=== PATIENT | female | born 1960 | race Caucasian/White ===

== ENCOUNTER 2017-08-23 20:55 | Emergency (ER) | payer BC ==
[2017-08-23] MEDS ORDERED: Ketorolac Tromethamine 30 MG/ML VIAL ONE (21:15)
[2017-08-23 21:26] LABS: #Basophils 0.1 thou/uL (0.0-0.2); #Eosinphils 0.1 thou/uL (0.0-0.7); #Lymphocytes 1.5 thou/uL (1.20-3.40); #Monocytes 0.5 thou/uL (0.11-0.59); %Basophils 2.2 % (0.0-1.0); %Eosinophils 2.4 % (0.0-10.0); %Monocytes 8.3 % (0.0-10.0); %Neutrophils 63.2 % (42.0-75.0); Hemoglobin 13.2 g/dL (12.0-16.0); Mean Corpuscular HGB CONC 33.6 g/dL (32.0-36.0); Mean Corpuscular Volume 89.3 fl (81.0-99.0); Mean Platelet Volume 8.7 fL (7.4-10.4); Platelet Count 220 thou/uL (130-400); RBC Distribution Width 11.1 % (11.5-14.5); Red Blood Cell (RBC) Count 4.41 mill/uL (4.20-5.40); White Blood Cell (WBC) Count 6.3 thou/uL (4.8-10.8)
[2017-08-23 21:42] LABS: ALT (SGPT) 14 U/L (8-55); AST (SGOT) 18 U/L (5-34); Albumin 4.5 g/dL (3.5-5.0); Alkaline Phosphatase 69 U/L (40-150); Anion Gap 16 mmol/L (10-20); BUN (Urea Nitrogen) 14 mg/dL (9.8-20.1); Bilirubin, Total 0.3 mg/dL (0.2-1.2); Calc. Creatinine Clearance 0 mL/min (70-130); Calcium 10.4 mg/dL (7.8-10.44); Carbon Dioxide 25 mmol/L (22-29); Chloride 104 mmol/L (98-107); Estimated GFR-MDRD 66; Globulin 3.3 g/dL (2.4-3.5); Glucose 106 mg/dL (70-105); Lipase 38 U/L (8-78); Potassium 4.3 mmol/L (3.5-5.1); Protein, Total 7.8 g/dL (6.0-8.3); Sodium 141 mmol/L (136-145)
--- NOTE | 2017-08-23 23:27 | CT ---
CT ABDOMEN AND PELVIS WITH ORAL AND IV CONTRAST 08/23/17 HISTORY: Abdominal pain. FINDINGS: The lung bases are clear. There is a 4 mm low density lesion in the inferior aspect of the right lobe of the liver, likely a cyst. No calcified gallstones are seen. The spleen, pancreas, adrenal glands, and kidneys are normal. No free air or free fluid or lymphadenopathy seen in the abdomen or pelvis. The small bowel loops are not abnormally dilated. There is fecal material in the colon. The cecum is low lying and abnormally distended. A fluid filled appendix is not definitely seen. Uterus is present . There is no evidence of aneurysmal dilatation of the abdominal aorta. A small hiatal hernia is note d. There are mild degenerative changes in the spine. IMPRESSION: No definite evidence of acute process. POS: [facility]
[2017-08-23 23:33] LABS: Bacteria/HPF None Seen HPF (None Seen); Bilirubin Negative (Negative); Blood, Urine Negative (Negative); Clarity Clear (Clear); Glucose, Urine (Dipstick) Negative (Negative); Hyaline Casts/LPF NONE SEEN LPF (0-3 Hyaline); Leukocyte Trace (Negative); Nitrite Negative (Negative); Protein, Urine (Dipstick) Negative (Neg-Trace); RBC/HPF 0-3 HPF (0-3); Specific Gravity, Urine 1.015 (1.005-1.030); Squamous Epithelial 0-3 HPF (0-3); Urobilinogen 0.2 mg/dL (0.2-1.0); WBC/HPF 0-3 HPF (0-3); pH, Urine 7.5 (5.0-9.0)
== END 2017-08-23 23:49 | disposition home or self-care (01) ==
LOC: SCSER 20:55
DX: R10.9 Unspecified abdominal pain (principal)
CPT/HCPCS: 74177; 80053; 81003; 81015; 83690; 85025; 96361; 96374; J1885

== ENCOUNTER 2017-11-25 08:38 | Outpatient (CLI) | payer BC | END 2017-11-25 08:39 | disposition home or self-care (01) | LOC: BICMAMMO 08:38 | PROVIDERS: ATTEND Internal Medicine | DX: Z13.820 Encounter for screening for osteoporosis (principal); N95.9 Unspecified menopausal and perimenopausal disorder | CPT/HCPCS: 77080 ==